=== PATIENT | male | born 1970 | race Caucasian/White ===

== ENCOUNTER 2023-10-07 08:44 | Emergency (ER) | payer MEDICAID, SELFPAY ==
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
[2023-10-07 08:59] VITALS: BP 132/64; BP 139/75; PULSE 76; PULSE 91; RESP 14; TEMP 36.4; O2SAT 90; O2SAT 93; BMI 21.5
[2023-10-07 09:20] VITALS: BP 140/85; PULSE 64; RESP 16; TEMP 36.3; O2SAT 95
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
--- NOTE | 2023-10-07 09:43 | PC.NURSE ---
Pt changed over by security, belongings in decon. Vitals stable, pt placed on bedside ekg monitor, NSR. SPO2 remains stable on RA. Pt is calm and cooperative, resting in bed.
[2023-10-07 09:53] LABS: MANUAL DIFF FLAG NO
[2023-10-07 09:57] LABS: Basophils Percent Auto 0.3 % (0-2); Eosinophils Absolute Auto 0.1 X10*3/uL (0.0-0.4); Eosinophils Percent Auto 1.8 % (0-4); Hematocrit 40.9 % (42.0-52.0); Imm Gran Abs Auto 0.02 X10*3/uL (0.00-0.03); Imm Gran Pct Auto 0.3 % (0.0-0.4); Lymphocytes Absolute Auto 0.9 X10*3/uL (1.2-4.9); Lymphocytes Percent Auto 13.9 % (20-40); Mean Corpuscular HGB Conc 34.2 g/dl (31.0-36.0); Mean Corpuscular Hemoglobin 31.9 pg (27.0-33.0); Mean Corpuscular Volume 93.2 fL (80.0-98.0); Mean Platelet Volume 10.2 fL (9.4-12.4); Monocytes Absolute Auto 0.5 X10*3/uL (0.1-1.2); Neutrophils Absolute Auto 5.2 x10*3/uL (2.0-8.3); Neutrophils Percent Auto 76.7 % (45-73); Platelet Count 194 X10*3/uL (160-400); Red Blood Count 4.39 X10*6/uL (4.60-5.80); Red Cell Distribution Width 14.9 % (11.0-16.0); White Blood Count 6.7 X10*3/uL (4.8-10.8)
[2023-10-07 10:00] VITALS: PULSE 58; RESP 16; O2SAT 95
[2023-10-07 10:16] LABS: Alanine Aminotransferase 25 U/L (0-40); Albumin Level 4.2 g/dL (3.5-5.0); Alkaline Phosphatase 91 U/L (39-117); Anion Gap 12 (12-20); Aspartate Amino Transferase 18 U/L (5-37); Bilirubin Direct 0.2 mg/dL (0.0-0.5); Bilirubin Total 0.5 mg/dL (0.0-1.0); Blood Urea Nitrogen 14 mg/dL (9-16); Calcium 9.6 mg/dL (8.4-10.2); Carbon Dioxide 27 mmol/L (22-29); Chloride 107 mmol/L (96-108); Creatinine Clr Calc Pharmacy 82.9; Estimated Glomerular Filt Rate > 60; Ethanol < 10 mg/dL; Glucose Random 136 mg/dL (60-115); Magnesium 2.1 mg/dL (1.6-2.6); Potassium 3.7 mmol/L (3.3-5.1); Sodium 142 mmol/L (135-145); Total Protein 7.1 g/dL (6.5-8.0)
--- NOTE | 2023-10-07 10:43 | ED_ITS ---
HPI - Overdose General Chief Complaint: Overdose Stated Complaint: FOUND UNRESP/?OD,NARCAN GIVEN W/GOOD RESULT PER EM Time Seen by Provider: 10/07/23 09:06 Source: patient Mode of arrival: ambulatory Limitations: no limitations History of Present Illness ED Provider: Radha Bustamante PA-C HPI Narrative: 52 yo male with history of DM, polysubstance abuse who presents to the ER for evaluation of an unwitnessed fall, possible drug overdose that responded to Narcan after being found unresponsive. [place] reports a neighbor found the patient unresponsive. He was given Narcan by the police with good response. Patient states that he thinks he fell down. He thinks he hit his head. He admits to using crack cocaine but denies heroin or fentanyl use. He denies any other injuries aside from a headache. No chest pain, abdominal pain, SOB, N/V/D. MD complaint: accidental overdose Onset (ago): unknown Intent: unwilling to say Related Data Allergies Allergy/AdvReac Type Severity Reaction Status Date / Time No Known Allergies Allergy Verified 10/07/23 09:02 Review of Systems 2 Review of Systems: Yes all other systems are reviewed and are negative [facility] Social History Social History Smoked in Last 30 Days: Yes Use of substances other than those prescribed or required for medical reasons: Yes Substance Use Type: Crack/Cocaine and Marijuana Advance Directives: No Advance Directives Information Provided: No Do you have a plan to hurt others: No Plan Physical Exam 2 Vital Signs: Vital Signs: Last Vital Signs Temp 97.6 F 10/07/23 12:14 Pulse 60 10/07/23 12:14 Resp 18 10/07/23 12:14 BP 176/102 H 10/07/23 12:14 Pulse Ox 98 10/07/23 12:14 O2 Del Method Room Air 10/07/23 12:14 BMI result Body Mass Index 21.5 Appearance: Alert. Oriented X3. No acute distress. Head: normocephalic, atraumatic. Eyes: Pupils equal, round and reactive to light. ENT: Pharynx normal. No tonsillar swelling or exudate. Neck: Normal inspection. Neck supple. tenderness of the midline cervical spine, normal ROM CVS: Normal heart rate and rhythm. Pulses normal. Respiratory: No respiratory distress. Breath sounds normal. Abdomen: Soft and nontender. +BS x4 Skin: Skin warm and dry. Normal skin color. Normal skin turgor. No rashes. Extremities: No lower extremity edema. No joint swelling. No tract pratt Neuro/psych: Oriented X 3. No motor deficit. No sensory deficit. CN II-XII intact. Normal speech and cognition. Medications Administered Discontinued Medications Generic Name Dose Route Start Last Admin Trade Name Trang PRN Reason Stop Dose Admin Naloxone HCl 8 mg 10/07/23 12:05 10/07/23 12:14 Naloxone Hcl Nasal Take Home 4 Mg Ringling NOSTRILALT 10/07/23 12:06 8 mg ONCE ONE Administration Medical Decision Making Medical Decision Making [facility] Narrative: 52-year-old male presents to the ER for evaluation of a possible overdose. He was found unresponsive and unable to Narcan. He arrives to the ER awake, alert, oriented but confused about the situation that occurred, does not have recollection of what happened. He does admit to crack cocaine use but denies any heroin or fentanyl use. He also admits to using marijuana. On examination there is no signs of any trauma but he does have some serious count redness and some soft tissue tenderness over the paraspinous muscles. CT head and neck were orbits were unremarkable. Lab workup was also ordered and unremarkable. CPK is normal no evidence of rhabdomyolysis. No other evidence of traumatic injuries on examination. Patient monitored in the emergency for over 3 hours with no further alteration in mentation. He was advised to abstain from illegal drugs as this was most likely etiology was unresponsive episode. Declining need for detox today. He is stable discharge home. Home Narcan was provided on discharge Differential Diagnosis Differential Diagnoses: The differential diagnosis associated with the presentation includes polysubstance overdose, alcohol intoxication, rhabdomyolysis, concussion, ICH/SAH less likely Admission/Observation Consideration of admission/observation: Escalation of care including admission/observation considered Lab Data [facility] Lab Attestation statement: I reviewed the patient's lab results. no leukocytosis, normal function, CPK 10/07/23 09:49 10/07/23 09:49 Labs: Lab Results 10/07/23 Range/Units 09:49 WBC 6.7 (4.8-10.8) X10*3/uL RBC 4.39 L (4.60-5.80) X10*6/uL Hgb 14.0 (14.0-18.0) g/dl Hct 40.9 L (42.0-52.0) % MCV 93.2 (80.0-98.0) fL MCH 31.9 (27.0-33.0) pg MCHC 34.2 (31.0-36.0) g/dl RDW 14.9 (11.0-16.0) % Plt Count 194 (160-400) X10*3/uL MPV 10.2 (9.4-12.4) fL Immature Gran % (Auto) 0.3 (0.0-0.4) % Neut % (Auto) 76.7 H (45-73) % Lymph % (Auto) 13.9 L (20-40) % Zapata % (Auto) 7.0 (2-11) % Eos % (Auto) 1.8 (0-4) % Baso % (Auto) 0.3 (0-2) % Lymph # (Auto) 0.9 L (1.2-4.9) X10*3/uL Zapata # (Auto) 0.5 (0.1-1.2) X10*3/uL Eos # (Auto) 0.1 (0.0-0.4) X10*3/uL Baso # (Auto) 0.0 (0.0-0.2) X10*3/uL Abs Immat Gran (auto) 0.02 (0.00-0.03) X10*3/uL Absolute Neuts (auto) 5.2 (2.0-8.3) x10*3/uL Absolute Nucleated RBC 0.000 (0.0-0.012) X10*3/uL Nucleated RBC % (auto) 0.0 (0.0-0.2) /100WBC Sodium 142 (135-145) mmol/L Potassium 3.7 (3.3-5.1) mmol/L Chloride 107 (96-108) mmol/L Carbon Dioxide 27 (22-29) mmol/L Anion Gap 12 (12-20) BUN 14 (9-16) mg/dL Creatinine 0.89 (0.5-1.4) mg/dL Estim Creat Clear Calc 82.9 Estimated GFR > 60 Random Glucose 136 H (60-115) mg/dL Calcium 9.6 (8.4-10.2) mg/dL Magnesium 2.1 (1.6-2.6) mg/dL Total Bilirubin 0.5 (0.0-1.0) mg/dL Direct Bilirubin 0.2 (0.0-0.5) mg/dL AST 18 (5-37) U/L ALT 25 (0-40) U/L Alkaline Phosphatase 91 (39-117) U/L Total Creatine Kinase 158 (38-174) U/L Total Protein 7.1 (6.5-8.0) g/dL Albumin 4.2 (3.5-5.0) g/dL Ethyl Alcohol < 10 mg/dL Independent Interpretation I performed an independent interpretation of an: CT Scan Interpretation: no acute cerebral edema or bleed, agree w/ radiology read Radiology Impression Discussion of test interpretation with radiology: I have reviewed the radiologist's reading. Radiologist Impression: EXAMINATION: CT HEAD WITHOUT CONTRAST CT CERVICAL SPINE WITHOUT CONTRAST CLINICAL INFORMATION: Headache status post fall. Head strike. COMPARISON: No relevant prior imaging. TECHNIQUE: CT imaging of the head and cervical spine was performed without contrast. Data was reformatted into multiplanar images at the acquisition workstation. This CT examination was performed using dose optimization techniques as appropriate, including one or more of the following: Automated exposure control, iterative reconstruction, and adjustment of technique factors (mA and/or kVp) according to patient size (this includes techniques or standardized protocols for targeted exams where dose is matched to indication/reason for exam). Fleischner Society criteria for the followup of incidental pulmonary nodules was implemented if appropriate. DLP: 963 mGy-cm. FINDINGS: Head: There is no acute intracranial hemorrhage or abnormal extra-axial collection. No intracranial mass effect or midline shift. Lateral and third ventricles are normal. No hydrocephalus. Kramer-white matter differentiation is grossly preserved and there is no evidence of acute territorial infarct. The calvarium and skull base are grossly intact. No mastoid or middle ear effusion. Moderate to severe paranasal sinus disease. There are chronic changes of an old healed left lamina papyracea fracture. Globes and orbits are otherwise unremarkable. Cervical spine: Spinal alignment is normal. Vertebral body heights are preserved. No acute cervical spine fracture. No abnormal prevertebral soft tissue swelling. Canal patency is not well assessed on this examination due to inherent limitations of CT without intrathecal contrast. There appears to be at least mild canal stenosis at multiple levels. Visualized soft tissues of the neck are unremarkable. Grossly no pathologically enlarged cervical lymph nodes. Lung apices are clear. CT/CT head/brain wo IV con IMPRESSION: Head: No acute intracranial hemorrhage. No evidence of acute territorial infarct. Cervical Spine: No acute cervical spine fracture and no posttraumatic spinal subluxation. There appears to be at least mild canal stenosis at multiple levels. If there are clinical symptoms of compressive myelopathy then a dedicated cervical spine MRI can be obtained for better anatomic characterization of the cord and canal. Independent Historian Clinical information obtained from an independent historian. History obtained from or confirmed by: EMS Prescription Management I considered prescription management with: Other ( Narcan) Chronic Conditions Patient?s care impacted by: Other ( polysubstance abuse) Social Determinants Patient?s care significantly limited by Social Determinants of Health including: Other Social Determinant of Health Critical Care Time Critical Care Time Critical Care Time: No Discharge Plan Discharge Clinical Impression: Drug overdose Patient Disposition: Home, Self-Care Instructions: Adult Overdose (ED) Additional Instructions: Don't do drugs You were given Narcan today If you develop new or worsening symptoms call 911 or come back to the ER for further evaluation. Interventions: ED Discharge Assessment Last Done: 10/07/23 12:14 Discharge Date/Time: 10/07/23 12:32 Print Language: Bulgarian
[2023-10-07 12:14] VITALS: BP 176/102; PULSE 60; RESP 18; TEMP 36.4; O2SAT 98
[2023-10-07] MEDS: Naloxone HCl Nasal TAKE HOME 4 MG SPRAY 8 MG NOSTRILALT (12:14)
== END 2023-10-07 12:32 | disposition home or self-care (01) ==
PROVIDERS: Physician Assistant; Emergency Provider Emergency Medicine
DX: T40.5X1A Poisoning by cocaine, accidental (unintentional), initial encounter (principal); R40.4 Transient alteration of awareness; Y92.9 Unspecified place or not applicable; F19.10 Other psychoactive substance abuse, uncomplicated
CPT/HCPCS: 36415; 70450; 72125; 80048; 80076; 80307; 82550; 83735; 85025; 99284; 99285

== ENCOUNTER 2024-12-05 23:56 | Emergency (ER) | payer MEDICAID, SELFPAY ==
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
--- NOTE | ~2024-12-05 | XR_ITS ---
CLINICAL HISTORY: pain, tender 2 view left femur Comparison: None provided Findings: No fractures or dislocations. No knee effusion. No significant arthritic change. No radiopaque foreign body. IMPRESSION: 1. Normal left femur This document has been electronically signed by: Matthew Patricia MD on 12/06/2024 02:08:53
[2024-12-06 00:05] VITALS: BP 112/74; PULSE 69; O2SAT 96
[2024-12-06 00:23] VITALS: BP 114/58; PULSE 82; RESP 16; TEMP 36.8; O2SAT 98; BMI 22.6
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
--- OUTSIDE RECORDS SUMMARY | 2024-12-06 01:18 | XMS_ITS | Encounter Summary ---
Author Organization [facility] Address [address] [address] Phone Care Team Providers Care Horticultural Worker Name Role Phone Mayo Bhargavi Nguyen [facility] Primary Care Provide r Encounter Details Date Type Department Care Team (Late st Contact Info) Description 08/29/2022 Transcribe Orders [facility] Specimen Processing [address] [place] [address] Anne Richard MD [id number] [place] [address] [email or web address] Social History Tobacco Use Types Packs/Day Years Used Date Smoking Tobacco: Never Assessed Education Answer Date Recorded Are you interested in more education? Not on everardo e 09/01/2022 Are you concerned about learning? Not on file 09/01/2022 No 09/01/2022 No 09/01/2022 Sex and Gender Information Value Date Recorded Sex Assigned at Not on file Legal Sex Male 1:21 PM EDT Gender Identity Not on file Sexual Orientation Not on file documented as of this encounter Plan of Treatment Not on file documented as of this encounter Visit Diagnoses Not on filedocumented in this encounter Care Teams Horticultural Worker Relationship Specialty Start Date End Date Bhargavi Huber FNP PCP - General Nurse Practitioner 08/27/22 documented as of this encounter Additional Source Comments The information contained in this document represents components of the legal health record. It is not the complete legal health record.[facility]
--- OUTSIDE RECORDS SUMMARY | 2024-12-06 01:18 | XMS_ITS | Clinical Summary ---
Author Organization [employer] Address [address] [facility] [address] [place] [address] Care Team Providers Care Play Writer Name Role Phone Ravi, Linda Unavailable Unavailable Allergies Active Allergy Reactions Criticality Noted Date Comments Amphetamine-Dextroamphetam ine 08/27/2022 hives Quetiapine Other 08/27/2022 Anger, violent behavioral Medications escitalopram (Lexapro) 20 MG tabletIndication s:PTSD (post-traumatic stress disorder) Take 1 tablet (20 mg) by mouth in the morning. 90 tablet 3 11/09/2022 Active atorvastatin (Lipitor) 40 MG tablet Take 1 tablet (40 mg) by mouth in the morning. 90 tablet 3 02/27/2023 Active metFORMIN (Glucophage) 500 MG tabletIndication s:Type 2 diabetes mellitus without complication, without long-term current use of insulin (CMS/HCC) TAKE 1 TABLET (500 MG) BY MOUTH WITH EVENING MEAL 90 tablet 3 03/04/2023 Active ARIPiprazole (Abilify) 5 MG tabletIndication s:Schizoaffectiv e disorder, bipolar type (CMS/HCC) Take 1 tablet (5 mg) by mouth in the morning. 30 tablet 1 03/22/2023 Active gabapentin (Neurontin) 300 MG capsuleIndicatio ns:Bipolar affective disorder, current episode mixed, current episode severity unspecified (CMS/HCC),Chroni c pain of right knee TAKE 1 CAPSULE BY MOUTH THREE TIMES A DAY 90 capsule 1 04/01/2023 Active clonazePAM (KlonoPIN) 1 MG tabletIndication s:Bipolar affective disorder, current episode mixed, current episode severity unspecified (CMS/HCC) TAKE 1 TABLET BY MOUTH IF NEEDED IN THE MORNING AT NOON AND AT BEDTIME FOR ANXIETY FOR UP TO 14 DAYS 42 tablet 08/20/2023 Active fenofibrate (Tricor) 48 MG tablet TAKE 1 TABLET (48 MG) BY MOUTH IN THE MORNING. 90 tablet 2 10/10/2023 Active Active Problems Problem Noted Date Diagnosed Date PTSD (post-traumatic stress disorder) 08/31/2022 Tobacco use disorder 08/31/2022 Type 2 diabetes mellitus wit hout complication, without long-term current use of insulin 08/31/2022 Hypertriglyceridemia 08/31/2022 Elevated LFTs 08/31/2022 Schizoaffective disorder, bipolar type Left foot drop 08/28/2022 Chronic pain of right knee 08/28/2022 Opioid use disorder in remission 08/28/2022 Insomnia 08/28/2022 Bipolar affective disorder, current episode mixe d 08/28/2022 Sheltered homelessness 08/28/2022 Resolved Problems Problem Noted Date Diagnosed Date Resolved Date Dyspnea 08/28/2022 08/31/2022 Immunizations Immunization Administration Dates Next Due Moderna Covid-19 Vaccine 12+ 02/27/2023 Social History Tobacco Use Types Packs/Day Years Used Date Smoking Tobacco: Every Day Cigarettes Tobacco Cessation:Ready to Q uit: Not Asked; Counseling Given: Not Answered Alcohol Use Standard Drinks/Week Comments Not Currently 0 (1 standard drink = 0.6 oz pur e alcohol) Education Answer Date Recorded What is the highest level of school you have completed or the highest degree you have received? 11th grade 08/01/2022 Sex and Gender Information Value Date Recorded Sex Assigned at Male 07/27/2022 1:18 PM EDT Legal Sex Male 1:14 PM EDT Gender Identity Male 07/27/2022 1:18 PM EDT Sexual Orientation Straight 08/31/2022 10 :56 AM EDT Last Filed Vital Signs Vital Sign Reading Time Taken Comments Blood Pressure 124/82 02/27/2023 11:43 AM EDT Pulse 82 02/27/2023 11:43 AM EDT Temperature 36.4 C (97.6 F) 02/27/2023 11:43 AM EDT Respiratory Rate 16 02/27/2023 11:43 AM EDT Oxygen Saturation 98% 02/27/2023 11:43 AM EDT Inhaled Oxygen Concentration - - Weight 69.9 kg (154 lb) 02/27/2023 11:43 AM EDT Height 167.6 cm (5' 6 ) 02/27/2023 11:43 AM EDT Body Mass Index 24.86 02/27/2023 11:43 AM EDT Plan of Treatment Health Maintenance Due Date Last Done Comments CT Colonography 1970 Colonoscopy 1970 Colorectal Cancer Screening 1970 Depression Screening 1970 FIT DNA/Cologuard 1970 FIT 1970 FOBT 1970 SDOH Screening 1970 Sigmoidoscopy 1970 Disability Screening 1970 Diabetes: Foot Exam 1980 Eye Exam 1980 Alcohol/Substance Use Screening 1982 DTaP/Tdap/Td Vaccines (1 - Tdap) 1989 Hepatitis B Vaccines (1 of 3 - 19+ 3-dose series) 1989 Pneumococcal Vaccine: 50+ Years (1 of 2 - PCV) 1989 Zoster Vaccines (1 of 2) 2020 Diabetes: Hemoglobin A1C 11/26/2022 023, 08/27/2022 Diabetes: Urine Protein Screening 08/28/2023 08/27/2022 Lipid Panel 08/28/2023 08/27/2022, 08/27/2022, 08/27/2022 COVID-19 Vaccine (2 - 2023-2 5 season) 2024 02/27/2023 Tobacco Screening 04/04/2024 04/04/2023 Influenza Vaccine (#1) 2025 RSV Patients and Patients Aged 60 years or older (1 - 1-dose 75+ series) 2045 HIV Screening Completed 08/27/2022, 08/27/2022 Hepatitis C Screening Completed 08/27/2022 , 08/27/2022 HIB Vaccines Aged Out No longer eligi ble based on patient's age to complete this topic HPV Vaccines Aged Out No longer eligi ble based on patient's age to complete this topic Hepatitis A Vaccines Aged Out No long er eligible based on patient's age to complete this topic IPV Vaccines Aged Out No longer eligi ble based on patient's age to complete this topic Meningococcal B Vaccine Aged Out No l onger eligible based on patient's age to complete this topic Meningococcal Vaccine Aged Out No da tricia eligible based on patient's age to complete this topic RSV under 20 months Aged Out No longe r eligible based on patient's age to complete this topic Rotavirus Vaccines Aged Out No longer eligible based on patient's age to complete this topic Procedures Procedure Name Priority Date/Time Associated Diagnosis Comments MICROALBUMIN, RANDOM (W CREAT) Routine 08/27/2022 2:53 PM EDT HEPATITIS C AB W/RFL RNA, PCR W/RFL GENOTYPE,LIPA Routine 08/27/2022 Encounter for HCV screening test for high risk patient HIV 1/2 ANTIGEN/ANTIBODY, FOURTH GENERATION W/RFL Routine 08/27/2022 Screening for HIV (human immunodeficiency virus) HEMOGLOBIN A1C Routine 08/27/2022 Hyperglycemia LIPID PANEL, STANDARD Routine 08/27/2022 Screening for lipid disorders from Last 3 Months or Most Recently Relevant to Health Maintenance Results * Microalbumin, Random Urine w/Creatinine (08/27/2022 2:53 PM EDT) Micro-Albumin <12.0 (<20) MG/L [facility] Comment: The urine microalbumin test is designed to monitor renal function. When screening for Bence Jeffries proteinuria, urine electrophoresis is recommended. Malb/Creat Ratio Unable to calculate (0-20) MG/GM [facility] Urine Creat For Micro Albumin 84.6 MG/DL [facility] Comment: Testing performed or reported by [facility], a Service of [facility], [address] [place] [address] Winsome Antonio MD, City Controller [facility]# [id number] 08/27/2022 2:53 PM EDT 08/27/2022 9:53 PM EDT [facility] LAB URINE ORDERABLES Ashley l Result [facility] [address] [place] [id number] * Hepatitis C Antibody with Reflex to HCV RNA,PCR w/Reflex to Genotype, LiPA (08/27/2022) [facility] LAB BLOOD ORDERABLES Ashley l Result EXTERNAL LAB * HIV-1/2 Antigen and Antibodies, Fourth Generation, with Reflexes (08/27/2022) Blood Venous blood specimen / Unknown [facility] LAB BLOOD ORDERABLES Ashley l Result EXTERNAL LAB * Hemoglobin A1c (08/27/2022) Blood Venous blood specimen / Unknown [facility] LAB BLOOD ORDERABLES Ashley l Result EXTERNAL LAB * Lipid Panel, Standard (08/27/2022) Blood Venous blood specimen / Unknown [facility] LAB BLOOD ORDERABLES Ashley l Result Performing Organization Address City/[facility]/ZIP Co de Phone Number EXTERNAL LAB from Last 3 Months or Most Recently Relevant to Health Maintenance Insurance [facility] C3 Care Teams Play Writer Relationship Specialty Start Date End Date Linda Rodrigues Navigator Financial Counseling and Assistance Services 07/31/22
[2024-12-06 01:23] LABS: Appearance Urine Clear; Glucose Urine UA Negative (Negative); PH 6.5 (5.0-9.0); Specific Gravity - Urine <= 1.005 (1.005-1.025)
[2024-12-06] MEDS: Diphth,Pertus(ACell),Tet Adult 0.5 ML SYRINGE IM (02:07)
[2024-12-06 06:16] VITALS: BP 123/83; PULSE 54; RESP 16; TEMP 36.7; O2SAT 97
[2024-12-06 06:32] VITALS: BP 123/83; PULSE 54; RESP 16; TEMP 36.7; O2SAT 97
== END 2024-12-06 06:32 | disposition home or self-care (01) ==
PROVIDERS: Emergency Provider Emergency Medicine
DX: S79.921A Unspecified injury of right thigh, initial encounter (principal); S29.9XXA Unspecified injury of thorax, initial encounter; Y04.8XXA Assault by other bodily force, initial encounter; Y93.9 Activity, unspecified; Y92.9 Unspecified place or not applicable; Y99.9 Unspecified external cause status
CPT/HCPCS: 70450; 71250; 73552; 81001; 90471; 90715; 99284

== ENCOUNTER → 2024-12-06 01:15 | Outpatient (BNV) | payer MEDICAID, SELFPAY | PROVIDERS: Emergency Provider Emergency Medicine; Visit Provider Radiology Diagnostic Radiology | DX: S29.9XXA Unspecified injury of thorax, initial encounter (principal); S09.90XA Unspecified injury of head, initial encounter; M79.652 Pain in left thigh | CPT/HCPCS: 70450; 71250; 73552 ==

== ENCOUNTER 2025-04-30 06:56 | Emergency (ER) | payer MEDICAID, SELFPAY ==
--- OUTSIDE RECORDS SUMMARY | 2024-07-07 03:40 | XMS_ITS ---
Author Organization [facility] Address [address] [place] [address] Care Team Providers Care Live In Housekeeper Name Role Phone Latisha Tidwell Primary Care Provider [facility], Nursing Unavailable [phone] REASON FOR VISIT Office: Lab draw Social History Sex Assigned At : Social History Observation Description Sex Assigned At Male Encounters Encounter Location Date Provider Diagnosis [address] [address] 07/07/2024 Nursing [facility] Plan Of Treatment No Information Progress Notes * Ronen DIASDOB:08/1970 (54 yo M)Acc No.[id number]:07/07/2024 Progress Notes Patient: Ronen MORA Provider: Yokasta rose [facility] :1970 A ge:53 Y S ex:Male Date:07/07/2024 Address:[address] [place], [place] [phone] Pcp:Latisha Tidwell Subjective: * Chief Complaints: * 1 . Office: Lab draw. Objective: * Vitals: Assessment: Plan: * Treatment: * Images: Billing Information: * Visit Code: * Procedure Codes: * Electronic signature of Dar [facility] on 04/30/2025 at 07:41 AM EST Sign off status: Pending * Provider: Yokasta rose [facility] Date: 0 07/07/2024 Generated for Darshana gupta/Meño/eTalliesmitting on: 1 07/01/2024 07:41 AM EST
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
--- OUTSIDE RECORDS SUMMARY | 2024-09-01 05:00 | XMS_ITS ---
Author Organization [facility] Address [address] [place] [address] Care Team Providers Care Automat Car Attendant Name Role Phone Latisha Tidwell Primary Care Provider REASON FOR VISIT Office: Chronic cre f/u Social History Sex Assigned At : Social History Observation Description Sex Assigned At Male Encounters Encounter Location Date Provider Diagnosis [address] [address] 09/01/2024 Latisha Tidwell Plan Of Treatment No Information Progress Notes * Ronen DIASDOB:08/1970 (54 yo M)Acc No.[id number]:09/01/2024 Progress Notes Patient: Eber RUSSRonen JEROME Provider: MARCOS Curtis :1970 A ge:53 Y S ex:Male Date:09/01/2024 Address:[address] [place], [place] [id number] Subjective: * Chief Complaints: * 1 . Office: Chronic cre f/u. * Medical History: Objective: * Vitals: Assessment: Plan: * Treatment: * Images: Billing Information: * Visit Code: * Procedure Codes: Care Plan Details* * Electronic signature of Bc Tidwell on 04/30/2025 at 07:40 AM EST Sign off status: Pending * Provider: MARCOS Curtis Date: 0 09/01/2024 Generated for Darshana Garza/Rolando on: 1 07/01/2024 07:40 AM EST
--- OUTSIDE RECORDS SUMMARY | 2024-10-14 04:00 | XMS_ITS ---
Author Organization [facility] Address [address] [place] [address] Care Team Providers Care Ornamental Iron Worker Helper Name Role Phone Latisha Tidwell Primary Care Provider [phone] REASON FOR VISIT Office: F/u DM Social History Sex Assigned At : Social History Observation Description Sex Assigned At Male Encounters Encounter Location Date Provider Diagnosis [address] [place] [address] 10/14/2024 Latisha Tidwell Encounter for screening for COVID-19 Z11.52 Assessments Encounter Date Diagnosis (ICD Code) Assessment Notes Treatment Notes Treatment Clinical Notes Section Notes 10/14/2024 Encounter for screening for COVID-19 (ICD-10 - Z11.52) Covid screening is negative. Discussed in detail with patient how to practice social distancing by avoiding public spaces and crowds now, wearing a mask in public to keep nose and mouth covered, and washing hands frequently especially before eating and after using the bathroom. Return to clinic if you develop any symtpoms of concern to be rescreened or go to the emergency room if you are having concerning symptoms for COVID-19. 10/14/2024 Other Plan Of Treatment Treatment Notes Assessment Notes Encounter for screening for COVID-19 Cov id screening is negative. Discussed in detail with patient how to practice social distancing by avoiding public spaces and crowds now, wearing a mask in public to keep nose and mouth covered, and washing hands frequently especially before eating and after using the bathroom. Return to clinic if you develop any symtpoms of concern to be rescreened or go to the emergency room if you are having concerning symptoms for COVID-19. Progress Notes * Ronen DIASDOB:08/1970 (54 yo M)Acc No.[id number]:10/14/2024 Progress Notes Patient: Ronen MORA Provider: MARCOS Curtis :1970 A ge:54 Y S ex:Male Date:10/14/2024 Address:[address] [place] [address] Subjective: * Chief Complaints: * 1 . Office: F/u DM. * HPI: G eneral: Symptom Screen: - Fever in the last 1 week? Patient denies - New or worsening cough in the last 1 week? Patient denies. - Contact will known COVID exposure in last 5 days? Patient denies -new rash within last 3 weeks? Patient denies - Have you received the COVID-19 vaccine? - Have you received COVID-19 booster? - Have you been tested positive for COVID -19 in the last 7 days? If so where and why? RN/MA:. * ROS: N o acute C/P no acute SOB, No problem with urine, No heartburn or abdominal pain. Endorses being able to climb one fight of stairs without stopping due to SOB, Mood: stable, appetite: good, sleeping well. Denies new skin rashes. * Medical History: Objective: * Vitals: Assessment: * Assessment: 1. E ncounter for screening for COVID-19 - Z11.52 (Primary) Plan: * Treatment: * Images: Billing Information: * Visit Code: * Procedure Codes: Care Plan Details* * Electronic signature of Bc Tidwell on 04/30/2025 at 07:41 AM EST Sign off status: Pending * Provider: MARCOS Curtis Date: 0 10/14/2024 Generated for Darshana gupta/Meño/Rolando on: 1 07/01/2024 07:41 AM EST
--- OUTSIDE RECORDS SUMMARY | 2025-01-16 16:00 | XMS_ITS ---
Author Organization [facility] Address [address] [place] [address] Care Team Providers Care Underwater Hunter Trapper Name Role Phone Latisha Tidwell Primary Care Provider Migration, Provider Unavailable Unavailable [facility]IT [facility] Conversion Encounter Medications Medication SIG (Take, [...] Location Date Provider Diagnosis [facility] [address] [place] [address] 01/16/2025 Provider Migration Type 2 diabetes mellitus with hyperglycemia E11.65 Assessments Encounter Date Diagnosis (ICD Code) Assessment Notes Treatment Notes Treatment Clinical Notes Section Notes 01/16/2025 Type 2 diabetes mellitus with hyperglycemia (ICD-10 - E11.65) Plan Of Treatment Medication Medication Name Sig Start Date Stop Date Notes Farxiga 5 MG 1 tab(s) orally once a day for 90 days 07/13/2024 pls deliver to [facility] Progress Notes * Isabel DIAS:08/1970 (54 yo M)Acc No.[id number]:01/16/2025 Patient: Ronen MORA Provider: :1970 A ge:54 Y S ex:Male Date:01/16/2025 Address:[address] [place] [address] Pcp:Latisha Tidwell Subjective: * Chief Complaints: * [facility] . [facility] * Medical History: * Medications: [...] Electronic signature of Prov ider Migration on 04/30/2025 at 07:41 AM EST Sign off status: Pending * Provider: Date: 0 01/16/2025 Generated for Darshana gupta/Meño/Rolando on: 1 07/01/2024 07:41 AM EST
[2025-04-30 07:29] VITALS: BP 145/63; PULSE 74; RESP 16; TEMP 36.6; O2SAT 97; BMI 18.6
--- OUTSIDE RECORDS SUMMARY | 2025-04-30 07:41 | XMS_ITS | Encounter Summary ---
Author Organization [facility] Address [address] [place] [address] Phone Care Team Providers Care Swimming Pool Installer Name Role Phone Bhargavi Huber MACHINE OPERATOR Primary Care Provider Encounter Details Date Type Department Care Team (Late st Contact Info) Description 08/29/2022 Transcribe Orders [facility] Specimen Processing [address] [place] [address] Anne Richard MD [address] [place] [address] [email or web address] Social History Tobacco Use Types Packs/Day Years [...] on filedocumented in this encounter Care Teams Swimming Pool Installer Relationship Specialty Start Date End Date Bhargavi Huber NP PCP - General Nurse Practitioner 08/27/22 documented as of this encounter Additional Source Comments The information contained in this document represents components of the legal health record. It is not the complete legal health record.[facility]
--- OUTSIDE RECORDS SUMMARY | 2025-04-30 07:41 | XMS_ITS | Clinical Summary ---
Author Organization [employer] Address [address] [facility] 7t [place] [address] Care Team Providers Care Pricing Lead Name Role Phone Ravi, Linda Unavailable Unavailable [...] complication, without long-term current use of insulin (HCC) TAKE 1 TABLET (500 MG) BY MOUTH WITH EVENING MEAL 90 tablet 3 03/04/2023 Active ARIPiprazole (Abilify) 5 MG tabletIndication s:Schizoaffectiv e disorder, bipolar type (CMS/HCC) (HCC) Take 1 tablet (5 mg) by mouth in the morning. 30 tablet 1 03/22/2023 Active gabapentin (Neurontin) 300 MG capsuleIndicatio ns:Bipolar affective disorder, current episode mixed, current episode severity unspecified (CMS/HCC) (HCC),Chronic pain of right knee TAKE 1 CAPSULE BY MOUTH THREE TIMES A DAY 90 capsule 1 04/01/2023 Active clonazePAM (KlonoPIN) 1 MG tabletIndication s:Bipolar affective disorder, current episode mixed, current episode severity unspecified (CMS/HCC) (HCC) TAKE 1 TABLET BY MOUTH IF NEEDED [...] Elevated LFTs 08/31/2022 Schizoaffective disorder, bipolar type ([facility]) 08/28/2022 Left foot drop 08/28/2022 Chronic pain of right knee 08/28/2022 Opioid use disorder in remission 08/28/2022 Insomnia 08/28/2022 Bipolar affective disorder, current episode mixe d ([facility]) 08/28/2022 Sheltered homelessness 08/28/2022 Resolved Problems Problem [...] 08/27/2022 Lipid Panel 08/28/2023 08/27/2022, 08/27/2022, 08/27/2022 Tobacco Screening 04/04/2024 04/04/2023 COVID-19 Vaccine (2 - 2024-2 6 season) 2025 02/27/2023 Influenza Vaccine (#1) 2025 RSV Patients and Patients Aged 60 years or older (1 - 1-dose 75+ series) 2045 HIV Screening Completed 08/27/2022 Hepatitis C Screening Completed 08/27/2022 , [...] 2:53 PM EDT) Micro-Albumin <12.0 (<20) MG/L [facility] Comment: The urine microalbumin test is designed to monitor renal function. When screening for Bence Jeffries proteinuria, urine electrophoresis is recommended. Malb/Creat Ratio Unable to calculate (0-20) MG/GM [facility] Urine Creat For Micro Albumin 84.6 MG/DL [facility] Comment: Testing performed or reported by [facility], a Service of [facility], [address] [place] [id number] Winsome Antonio MD, Shank Skinner [facility]# [id number] 08/27/2022 2:53 PM EDT 08/27/2022 9:53 PM EDT [facility] LAB URINE ORDERABLES Ashley amador Result [facility] [address] [place] [address] * Hepatitis C Antibody with Reflex to HCV RNA,PCR w/Reflex to Genotype, LiPA (08/27/2022) [facility] LAB BLOOD ORDERABLES Ashley l Result Performing Organization Address City/[facility]/ZIP Co de Phone Number EXTERNAL LAB * HIV-1/2 Antigen and Antibodies, Fourth Generation, with Reflexes (08/27/2022) Blood Venous blood specimen / Unknown [facility] LAB BLOOD ORDERABLES Ashley l Result EXTERNAL LAB * Hemoglobin A1c (08/27/2022) Blood Venous blood specimen / Unknown [facility] LAB BLOOD ORDERABLES Ashley l Result EXTERNAL LAB * Lipid Panel, Standard (08/27/2022) Blood Venous blood specimen / Unknown [facility] LAB BLOOD ORDERABLES Ashley l Result Performing Organization Address City/[facility] Co de Phone Number EXTERNAL LAB from Last 3 Months or Most Recently Relevant to Health Maintenance Insurance [facility] C3 Care Teams Pricing Lead Relationship Specialty Start Date End Date Linda Rodrigues Navigator Financial Counseling and Assistance Services 07/31/22
--- OUTSIDE RECORDS SUMMARY | 2025-04-30 07:41 | XMS_ITS | Clinical Summary ---
Author Organization [facility] Address [address] [place] [address] Phone Care Team Providers Care Wildlife Technician Name Role Phone Bhargavi Huber SEAMUS Primary Care Provider Social History Tobacco Use Types Packs/Day Years Used Date Smoking Tobacco: Never Assessed Education Answer Date Recorded Are you interested in more education? Not on everardo e 09/01/2022 Are you concerned about learning? Not on file 09/01/2022 No 09/01/2022 No 09/01/2022 Digital Access Answer Date Recorded No 10/02/2022 No 10/02/2022 Reliable internet access at home? Not on file 10/02/2022 Device with a working camera? Not on file Sex and Gender Information Value Date Recorded Sex Assigned at Not on file Legal Sex Male 1:21 PM EDT Gender Identity Not on file Sexual Orientation Not on file Plan of Treatment Not on file Medical Devices Not on file Insurance [facility] C3 ACO [facility] C3 ACO [facility] C3 ACO Care Teams Wildlife Technician Relationship Specialty Start Date End Date Bhargavi Huber NP PCP - General Nurse Practitioner 08/27/22 Additional Source Comments The information contained in this document represents components of the legal health record. It is not the complete legal health record.[facility]
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
--- NOTE | 2025-04-30 09:04 | ED.GENADULT ---
HPI - General Adult General Chief complaint: General Medical Stated complaint: back, leg pain. homeless Time Seen by Provider: 04/30/25 09:04 Source: patient Mode of arrival: ambulatory Limitations: no limitations History of Present Illness ED Provider: Donita English PA-C HPI narrative: Patient is a 54 year old male with no reported medical history presenting to the emergency department today with muscle soreness. Patient states that he is currently unhoused and sleeping on the floor in a tent and now his back is sore. Patient denies any bowel or bladder retention or incontinence. Patient denies any fevers / chills. Patient denies any other complaints at this time. Related Data Previous Rx's ?Medication ?Instructions ?Recorded cefadroxil 500 mg capsule 500 mg PO BID 7 days #14 caps 12/06/24 Allergies Allergy/AdvReac Type Severity Reaction Status Date / Time No Known Allergies Allergy Verified 04/30/25 07:31 Review of Systems Constitutional: Constitutional: Reports as per HPI Eyes: Eyes: Reports as per HPI ENT: Reports as per HPI Cardiovascular: Cardiovascular: Reports as per HPI Respiratory: Respiratory: Reports as per HPI Gastrointestinal: Gastrointestinal: Reports as per HPI Genitourinary: Genitourinary: Reports as per HPI Musculoskeletal: Musculoskeletal: Reports as per HPI Integumentary/Breasts: Skin/Breast: Reports as per HPI Neurologic: Reports as per HPI Psychiatric: Psychiatric: Reports as per HPI Endocrine: Endocrine: Reports as per HPI Hematologic/Lymphatic: Hematologic/Lymphatic: Reports as per HPI Allergic/Immunologic: Allergic/Immunologic: Reports as per HPI PMFSH Past Medical History Attestation statement: The following information was validated with the patient. Source: old records reviewed and nursing notes reviewed Social History Social History Substance Use Type: Crack/Cocaine and Marijuana Advance Directives: No Advance Directives Information Provided: No Physical Exam ED Vital Signs: Vital Signs - 24 hr 04/30/25 07:29 04/30/25 09:53 Temperature 98 F 98 F Pulse Rate 74 74 Respiratory Rate 16 16 Blood Pressure 145/63 H 145/63 H Pulse Oximetry 97 97 Oxygen Delivery Method Room Air Room Air BMI result Body Mass Index 18.6 Const General: cooperative, no acute distress, alert and awake Nutritional Appearance: well nourished Orientation/consciousness: patient oriented x3 HENMT Head: Yes normal to inspection and Yes atraumatic Ears: hearing grossly normal bilaterally and external ears normal General nose exam: Normal external nose present, no nasal discharge noted and no epistaxis Face and sinus: Yes normal facial exam, No abrasion and No laceration Mouth: Normal oral and palatal mucosa present, no drooling and no muffled voice Eyes General: appearance normal, both eyes and all related structures Periorbital: periorbital findings normal Eyelids: Yes eyelids normal Conjunctivae: conjunctivae normal Pupils: Equal, round and reactive pupils present EOM: EOMs intact bilaterally Neck Neck: Yes normal visual inspection and Yes full ROM Resp Effort & Inspection: normal respiratory effort and able to speak in complete sentences Back/Spine/Pelvis Cervical Spine: normal cervical lordosis and cervical ROM normal Thoracic/Lumbar Spine: thoraco-lumbar ROM normal Neuro General: patient oriented x3, moves all extremities and CN's II-XI intact bilaterally Cranial nerves: Yes Equal, round and reactive pupils present Cognition (Neuro): normal cognition Extrem General: Yes normal to inspection, Yes full ROM and Yes capillary refill normal Psych Appearance: grossly normal Mental Status: mental status grossly normal Affect: normal affect Attitude: cooperative Thought process: Normal thought process present Thought content: Normal thought content present Insight: Good insight present (Psych) Medications Administered Discontinued Medications Generic Name Dose Route Start Last Admin Trade Name Freq PRN Reason Stop Dose Admin Acetaminophen 975 mg 04/30/25 09:12 04/30/25 09:21 Acetaminophen 325 Mg Tablet PO 04/30/25 09:13 975 mg ONCE ONE Administration Medical Decision Making Medical Decision Making [facility] Narrative: Patient is a 54 year old male with no reported medical history presenting to the emergency department today with muscle soreness. Patient's physical exam was as noted in the physical exam portion of this note. I explained my physical exam findings to the patient. I answered all questions asked by the patient. Patient was given PO Tylenol for his soreness. I stressed the importance of the patient taking his medication as directed (either prescribed or as the over the counter packaging recommends). I stressed the importance of the patient following up with his primary care provider. I stressed the importance of the patient returning to the emergency department immediately if his symptoms were to worsen or if he were to develop any dizziness, shortness of breath, difficulty breathing, chest pain, blurry vision, loss of vision, nausea, vomiting, abdominal pain, fever, chills, back pain, or any other complaints. Patient verbalized agreement and understanding with this treatment plan and discharge. Differential Diagnosis Differential Diagnoses: The differential diagnosis associated with the presentation includes Muscle soreness Inadequate sleeping arrangements Admission/Observation Consideration of admission/observation: Escalation of care including admission/observation considered Patient would have been admitted to the hospital had his clinical presentation warranted hospital admission. Tests considered The following testing was considered but not selected: I considered obtaining a CT lumbar spine or an x-ray of the lumbar spine however, the patient's current clinical presentation and lack of mechanism of injury did not warrant it at this time. Social Determinants Patient?s care significantly limited by Social Determinants of Health including: Inadequate housing Discharge Plan Discharge Clinical Impression: Muscle soreness Patient Disposition: Home, Self-Care Instructions: Musculoskeletal Pain (ED) Additional Instructions: IF you are prescribed home medications and/or you are taking over the counter medications at home - it is very important you continue to do so as prescribed / directed unless told otherwise by a healthcare provider. Follow up with your primary care provider. Do your best to stay well hydrated and rest. Return to the emergency department immediately if your symptoms worsen or if you develop any numbness, tingling, dizziness, shortness of breath, difficulty breathing, chest pain, blurry vision, loss of vision, nausea, vomiting, abdominal pain, fever, chills, back pain, or any other complaints. If you do not have a primary care provider - call any of the below numbers to establish and follow up with a primary care provider. [facility] ([place]) [phone] [place] [address], [address] [facility] ([facility]) [phone] [place] [address], [address] [facility] [place], [address] [facility] ([address] [facility]) [phone] [place] [address], [address] [facility] [place], [address] [facility] ([place]) [phone] [place] [address] 2 [facility], [address] [facility] Family [facility] [phone] [place] [address], [address] Please see the information below about our Patient Portal. If you are not yet enrolled in the [facility] Patient Portal, you will receive an enrollment email invitation following your visit to any [facility] care setting. You may also self-enroll in the Patient Portal by visiting our website: [email or web address] The following information is required to access the Patient Portal: - Your [facility] Medical Record Number - Your personal home email address (must match what is in your electronic medical record, Registration staff can assist with this) - Name - Date of Capabilities of the Patient Portal: - Message some providers - View upcoming appointments - Access your health summary, medical history, and visit history - View current conditions and allergies - View procedure and lab results - View your medications, including guidelines, side effects, and precautions - Complete pre-appointment questionnaires requested by your provider - Ready summary reports of your office visits and procedures To access the Patient Portal Mobile Juan [employer], follow these directions: - Search [employer] in the [employer] Store or [employer] - Download the Juan José - Search for [facility] - Enter your login/password Housing / Shelters [facility] (Male ONLY) [address] [place] [address] [facility] [address] [place] [address] [facility] [address] [place] [address] [facility] the [facility] (Emergency Jail) [address] [place] [address] [address] [place] [address] [address] [place] [address] [facility] [address] [place] [address] [facility] [address] [place] [address] [facility] [address] [place] [address] [facility] (Male ONLY) [address] [place] [address] [facility] ([facility]) [address] [place] [address] [facility] Code Enforcement Officer [address] [place] [address] [facility] (Male ONLY) [address] [place] [address] Non-emergency line: Emergency line: [facility] [address] [place] [address] [facility] (Veterans only) [address] [place] [address] Food Resources / Community Meals DTA (Administers Food [place]) [address] [place] [address] Saturday through Saturday 8:00am - 5:00pm Emergency Food [facility]ry [address] [place] [address] Saturday, Saturday, Saturday, and Saturday 9:00am - 3:00pm [employer] [address] [place] [address] Saturday through Saturday 12:00pm - 2:00pm (Press option 6) [employer] [facility] [address] [place] [address] Wednesdays 10:00am - 6:00pm [facility] [address] [place] [address] Saturday through Saturday 10:30am - 12:00pm (Press option 4) Mobile Food Bank ([facility]) [address] [place] [address] and Saturday of each month 11:00am - 11:45am [facility] [employer] Enforcement Officer [address] [place] [address] [facility] [address] [place] [address] Food Pantry: Saturday through 9:30am - 12:00pm Baked goods and vegetables: Saturday and 10:00am - 11:00am Meals-to-go: 2:00pm - 3:00pm [facility] Program [address] (1st floor) [place] [address] Saturday and Saturday 8:30am - 4:30pm Saturday and 9:00am - 5:00pm Saturday 8:00am - 4:00pm Clothing Resources [employer] [facility] [employer] (Foster / Adoption Families ONLY) [address] [place] [address] [employer] [address] [place], [place] [id number] Give Away [facility] ([facility]) [address] [place] [address] (extension 121) [facility] [address] [place] [address] [facility] [address] [facility] (2nd floor) [place] [address] [employer] (FREE) [address] [place] [address] Prescriptions: No Action cefadroxil 500 mg capsule 500 mg PO BID 7 Days Qty: 14 0RF Interventions: ED Discharge Assessment Last Done: 04/30/25 09:53 Discharge Date/Time: 04/30/25 09:54 Print Language: Greek
[2025-04-30 09:53] VITALS: BP 145/63; PULSE 74; RESP 16; TEMP 36.6; O2SAT 97
== END 2025-04-30 09:54 | disposition home or self-care (01) ==
PROVIDERS: Emergency Provider Emergency Medicine
DX: M79.10 Myalgia, unspecified site (principal)
CPT/HCPCS: 99283

== ENCOUNTER 2025-05-01 13:58 | Inpatient (IN) | payer MEDICAID, OTHER, SELFPAY ==
--- OUTSIDE RECORDS SUMMARY | 2024-07-07 03:40 | XMS_ITS ---
Author Organization [facility] Address [address] [place] [address] Care Team Providers Care Financial Foundations Associate Name Role Phone Latisha iTdwell Primary Care Provider [phone] [facility], Nursing Unavailable [phone] REASON FOR VISIT Office: Lab draw Social History Sex Assigned At : Social History Observation Description Sex Assigned At Male Encounters Encounter Location Date Provider Diagnosis [address] [address] 07/07/2024 Nursing [facility] Plan Of Treatment No Information Progress Notes * Ronen DIASDOB:08/1970 (54 yo M)Acc No.[id number]:07/07/2024 Progress Notes Patient: Ronen MORA Provider: Yokasta rose [facility] :1970 A ge:53 Y S ex:Male Date:07/07/2024 Address:[address] [place], [place] [id number] Pcp:Latisha Tidwell Subjective: * Chief Complaints: * 1 . Office: Lab draw. Objective: * Vitals: Assessment: Plan: * Treatment: * Images: Billing Information: * Visit Code: * Procedure Codes: * Electronic signature of Dar giordano [facility] on 05/01/2025 at 02:58 PM EST Sign off status: Pending * Provider: Yokasta rose [facility] Date: 0 07/07/2024 Generated for Darshana gupta/Meño/eTalliesmitting on: 1 07/02/2024 02:58 PM EST
--- OUTSIDE RECORDS SUMMARY | 2024-07-14 04:30 | XMS_ITS ---
Author Organization [facility] Address [address] [place] [address] Care Team Providers Care Asphalt Tile Floor Layer Name Role Phone Latisha Tidwell Primary Care Provider [phone] [facility], Nursing Unavailable [phone] REASON FOR VISIT Lab Draw Social History Sex Assigned At : Social History Observation Description Sex Assigned At Male Encounters Encounter Location Date Provider Diagnosis [address] [address] 07/14/2024 Nursing [facility] Plan Of Treatment No Information Progress Notes * Ronen DIASDOB:08/1970 (54 yo M)Acc No.[id number]:07/14/2024 Progress Notes Patient: Eber LOPEZANRonen Provider: Yokasta rose [facility] :1970 A ge:53 Y S ex:Male Date:07/14/2024 Address:[address] [place], [place] [id number] Pcp:Latisha Tidwell Subjective: * Chief Complaints: * 1 . Lab Draw. Objective: * Vitals: Assessment: Plan: * Treatment: * Images: Billing Information: * Visit Code: * Procedure Codes: * Electronic signature of Dar [facility] on 05/01/2025 at 02:59 PM EST Sign off status: Pending * Provider: Yokasta rose [facility] Date: 0 07/14/2024 Generated for Darshana gupta/Meño/eTransmitting on: 1 07/02/2024 02:59 PM EST
--- OUTSIDE RECORDS SUMMARY | 2024-09-01 05:00 | XMS_ITS ---
Author Organization [facility] Address [address] [place] [phone] Care Team Providers Care Bods Developer Name Role Phone Latisha Tidwell Primary Care Provider [phone] REASON FOR VISIT Office: Chronic cre f/u Social History Sex Assigned At : Social History Observation Description Sex Assigned At Male Encounters Encounter Location Date Provider Diagnosis [address] [address] 09/01/2024 Latisha Tidwell Plan Of Treatment No Information Progress Notes * Ronen DIASDOB:08/1970 (54 yo M)Acc No.[id number]:09/01/2024 Progress Notes Patient: Eber RUSSRonen JEROME Provider: MARCOS Curtis :1970 A ge:53 Y S ex:Male Date:09/01/2024 Address:[address] [place], [place] [phone] Subjective: * Chief Complaints: * 1 . Office: Chronic cre f/u. * Medical History: Objective: * Vitals: Assessment: Plan: * Treatment: * Images: Billing Information: * Visit Code: * Procedure Codes: Care Plan Details* * Electronic signature of Bc Tidwell on 05/01/2025 at 02:58 PM EST Sign off status: Pending * Provider: MARCOS Curtis Date: 0 09/01/2024 Generated for Darshana Garza/Rolando on: 1 07/02/2024 02:58 PM EST
--- OUTSIDE RECORDS SUMMARY | 2024-10-14 04:00 | XMS_ITS ---
Author Organization [facility] Address [address] [place] [address] Care Team Providers Care City Assessor Name Role Phone Latisha Tidwell Primary Care Provider REASON FOR VISIT Office: F/u DM Social History Sex Assigned At : Social History Observation Description Sex Assigned At Male Encounters Encounter Location Date Provider Diagnosis [phone] [place] [address] 10/14/2024 Latisha Tidwell Encounter for screening for [...] Notes * Ronen DIASDOB:08/1970 (54 yo M)Acc No.[id number]:10/14/2024 Progress Notes Patient: Ronen MORA Provider: MARCOS Curtis :1970 A ge:54 Y S ex:Male Date:10/14/2024 Address:[address] [place] [address] Subjective: * Chief Complaints: * 1 . [...] signature of Bc Tidwell on 05/01/2025 at 02:59 PM EST Sign off status: Pending * Provider: MARCOS Curtis Date: 0 10/14/2024 Generated for Darshana gupta/Meño/Rockyitting on: 1 07/02/2024 02:59 PM EST
--- OUTSIDE RECORDS SUMMARY | 2025-01-16 16:00 | XMS_ITS ---
Author Organization [facility] Address [address] [place] [address] Care Team Providers Care Supervisor Grain And Yeast Plants Name Role Phone Latihsa Tidwell Primary Care Provider [phone] Migration, Provider Unavailable Unavailable [facility]IT [facility] Conversion Encounter Medications Medication SIG (Take, Route, Frequency, Duration) Notes Start Date End Date Status Farxiga 5 MG 1 tab(s) orally once a day for 90 days pls deliver to [facility] 07/13/2024 Active Gabapentin 300 MG 1 cap(s) orally 3 times a day Active KlonoPIN 0.5 MG 1 tab(s) orally 3 times a day Active Pedialyte - 100 ml oral 3x/day f or 1 days 06/08/2024 Active Suboxone 8-2 MG 2 film(s) sublingual ly once a day Active Social History Sex Assigned At : Social History Observation Description Sex Assigned At Male Encounters Encounter Location Date Provider Diagnosis [facility] [address] [place] [address] 01/16/2025 Provider Migration Type 2 diabetes mellitus with hyperglycemia E11.65 Assessments Encounter Date Diagnosis (ICD Code) Assessment Notes Treatment Notes Treatment Clinical Notes Section Notes 01/16/2025 Type 2 diabetes mellitus with hyperglycemia (ICD-10 - E11.65) Plan Of Treatment Medication Medication Name Sig Start Date Stop Date Notes Farxiga 5 MG 1 tab(s) orally once a day for 90 days 07/13/2024 pls deliver to [facility] Progress Notes * Isabel DIAS:08/1970 (54 yo M)Acc No.[id number]:01/16/2025 Patient: Ronen MORA Provider: :1970 A ge:54 Y S ex:Male Date:01/16/2025 Address:[address] [place] [address] Pcp:Latisha Tidwell Subjective: * Chief Complaints: * [facility] * Medical History: * Medications: T aking KlonoPIN 0.5 MG Tablet 1 tab(s) orally 3 times a day , Taking Gabapentin 300 MG Capsule 1 cap(s) orally 3 times a day , Taking Suboxone 8-2 MG Film 2 film(s) sublingually once a day , Taking Pedialyte - Solution 100 ml oral 3x/day Objective: * Vitals: Assessment: * Assessment: 1. T ype 2 diabetes mellitus with hyperglycemia - E11.65 (Primary) Plan: * Treatment: * Images: Billing Information: * Visit Code: * Procedure Codes: * Electronic signature of Prov ider Migration on 05/01/2025 at 02:58 PM EST Sign off status: Pending * Provider: Date: 0 01/16/2025 Generated for Darshana gupta/Meño/Rolando on: 1 07/02/2024 02:58 PM EST
--- NOTE | 2025-05-01 14:12 | ED_ITS ---
HPI - General Adult General Chief complaint: Psychiatric Symptoms Stated complaint: SI Time Seen by Provider: 05/01/25 14:01 Source: patient and EMS Mode of arrival: EMS Limitations: no limitations History of Present Illness ED Provider: Donita English PA-C HPI narrative: Patient is a 54 year old male with a history of cocaine use and current homelessness presenting to the emergency department today with increased anxiety, depression, and now suicidal. Patient states that he has been feeling much more stressed, anxious, and depressed. Patient states that he is having thoughts of hurting himself but does not have any plan. Patient states that he does not have any thoughts of hurting others. Patient denies any other complaints at this time. Related Data Home Medications ?Medication ?Instructions ?Recorded ?Confirmed No Known Home Meds 05/02/25 05/03/25 Allergies Allergy/AdvReac Type Severity Reaction Status Date / Time sweet peas Allergy Hives Uncoded 05/01/25 14:32 Review of Systems 2 Constitutional: Constitutional: Reports as per HPI Eyes: Eyes: Reports as per HPI ENT: Reports as per HPI Cardiovascular: Cardiovascular: Reports as per HPI Respiratory: Respiratory: Reports as per HPI Gastrointestinal: Gastrointestinal: Reports as per HPI Genitourinary: Genitourinary: Reports as per HPI Musculoskeletal: Musculoskeletal: Reports as per HPI Integumentary/Breasts: Skin/Breast: Reports as per HPI Neurologic: Reports as per HPI Psychiatric: Psychiatric: Reports as per HPI Endocrine: Endocrine: Reports as per HPI Hematologic/Lymphatic: Hematologic/Lymphatic: Reports as per HPI Allergic/Immunologic: Allergic/Immunologic: Reports as per HPI [facility] Past Medical History Attestation statement: The following information was validated with the patient. Source: old records reviewed and nursing notes reviewed Social History Social History Use of substances other than those prescribed or required for medical reasons: Yes Substance Use Type: Crack/Cocaine Advance Directives: No Advance Directives Information Provided: Yes Physical Exam ED Vital Signs: Vital Signs - 24 hr 05/02/25 19:46 05/02/25 22:00 05/03/25 07:25 Temperature 98.2 F 98.1 F 98.2 F Pulse Rate 79 59 52 Respiratory Rate 20 14 Blood Pressure 141/83 H 136/78 139/85 Pulse Oximetry 98 96 97 Oxygen Delivery Method Room Air Room Air Room Air BMI result Body Mass Index 19.9 Const General: cooperative, alert and awake Orientation/consciousness: patient oriented x3 HENMT Head: Yes normal to inspection and Yes atraumatic Ears: hearing grossly normal bilaterally and external ears normal General nose exam: Normal external nose present, no nasal discharge noted and no epistaxis Face and sinus: Yes normal facial exam, No abrasion and No laceration Mouth: Normal oral and palatal mucosa present, no drooling and no muffled voice Eyes General: appearance normal, both eyes and all related structures Periorbital: periorbital findings normal Eyelids: Yes eyelids normal Conjunctivae: conjunctivae normal Pupils: Equal, round and reactive pupils present EOM: EOMs intact bilaterally Resp Effort & Inspection: normal respiratory effort and able to speak in complete sentences Neuro General: patient oriented x3, moves all extremities and CN's II-XI intact bilaterally Cranial nerves: Yes Equal, round and reactive pupils present Cognition (Neuro): normal cognition Extrem General: Yes full ROM Psych Appearance: grossly normal Mental Status: mental status grossly normal Affect: Sad affect present Attitude: cooperative Thought content: Suicidality present and no homicidality Course Course Course Narrative: Time: 06:03 Date: 05/03/25 Provider: Sneha Nieto, DO Patient in physician observation for psychiatric evaluation.? No acute events reported overnight. No current complaints. VS stable.? pending IPBS. Will continue to monitor. Reevaluation(s) Reevaluation #1: 1:16 PM 05/03/2025 (PAULINO MUIR): Please then physician observation patient was admitted inpatient to our mental health unit Medications Administered Generic Name Dose Route Start Last Admin Trade Name Freq PRN Reason Stop Dose Admin Nicotine 14 mg 05/01/25 19:15 05/01/25 21:06 Nicotine 14 Mg Patch.Td24 TRANSDERMA 14 mg ONCE SHINE Administration Discontinued Medications Generic Name Dose Route Start Last Admin Trade Name Freq PRN Reason Stop Dose Admin Acetaminophen 975 mg 05/02/25 19:19 05/02/25 20:08 Acetaminophen 325 Mg Tablet PO 05/02/25 19:20 Not Given ONCE ONE Al Hydroxide/Mg Hydroxide 30 ml 05/02/25 20:24 05/02/25 20:29 Magnesium Hydrox/Alum Hydrox 30 Ml Oral.Susp PO 05/02/25 20:25 30 ml ONCE ONE Administration Calcium Carbonate 1,500 mg 05/02/25 14:09 05/02/25 14:56 Calcium Carbonate 750 Mg Tab.Chew PO 05/02/25 14:10 1,500 mg ONCE ONE Administration Loperamide HCl 2 mg 05/02/25 20:24 05/02/25 20:29 Loperamide Hcl 2 Mg Capsule PO 05/02/25 20:25 2 mg ONCE ONE Administration Loperamide HCl 4 mg 05/02/25 22:16 05/02/25 22:20 Loperamide Hcl 2 Mg Capsule PO 05/02/25 22:17 4 mg ONCE ONE Administration Magnesium Oxide 800 mg 05/01/25 17:58 05/01/25 18:41 Magnesium Oxide 400 Mg Tablet PO 05/01/25 17:59 800 mg ONCE ONE Administration Oxycodone HCl 5 mg 05/02/25 19:52 05/02/25 20:12 Oxycodone Hcl Immed Release 5 Mg Tablet PO 05/02/25 19:53 5 mg ONCE ONE Administration Medical Decision Making Medical Decision Making MDM Narrative: Patient is a 54 year old male with a history of cocaine use and current homelessness presenting to the emergency department today with increased anxiety, depression, and now suicidal. Patient's physical exam was as noted in the physical exam portion of this note. Patient's blood work was unremarkable. Patient's EKG showed no obvious evidence of arrhythmia, ischemia, or infarct. Patient's QT interval was slighted elongated. Patient given PO magnesium. Patient COVID-19 positive. Asymptomatic. I explained my physical exam findings as well as all test results to the patient. I answered all questions asked by the patient. Patient placed in observation at 1426 pending CARE team evaluation. Differential Diagnosis Differential Diagnoses: The differential diagnosis associated with the presentation includes SI Using the ER for temporary housing Depression Admission/Observation Consideration of admission/observation: Escalation of care including admission/observation considered Patient's disposition will be determined after CARE team evaluation. Lab Data [facility] Lab Attestation statement: I reviewed the patient's lab results. My interpretation of these results are in the MDM Rationale portion of this note. 05/01/25 14:59 05/01/25 14:59 Labs: Lab Results 05/01/25 Range/Units 14:59 WBC 4.2 L (4.8-10.8) X10*3/uL RBC 4.70 (4.60-5.80) X10*6/uL Hgb 14.1 (14.0-18.0) g/dl Hct 41.6 L (42.0-52.0) % MCV 88.5 (80.0-98.0) fL MCH 30.0 (27.0-33.0) pg MCHC 33.9 (31.0-36.0) g/dl RDW 15.3 (11.0-16.0) % Plt Count 239 (160-400) X10*3/uL MPV 9.2 L (9.4-12.4) fL Immature Gran % (Auto) 0.2 (0.0-0.4) % Neut % (Auto) 64.3 (45-73) % Lymph % (Auto) 27.8 (20-40) % Dougherty % (Auto) 5.8 (2-11) % Eos % (Auto) 1.7 (0-4) % Baso % (Auto) 0.2 (0-2) % Lymph # (Auto) 1.2 (1.2-4.9) X10*3/uL Dougherty # (Auto) 0.2 (0.1-1.2) X10*3/uL Eos # (Auto) 0.1 (0.0-0.4) X10*3/uL Baso # (Auto) 0.0 (0.0-0.2) X10*3/uL Abs Immat Gran (auto) 0.01 (0.00-0.03) X10*3/uL Absolute Neuts (auto) 2.7 (2.0-8.3) x10*3/uL Absolute Nucleated RBC 0.000 (0.0-0.012) X10*3/uL Nucleated RBC % (auto) 0.0 (0.0-0.2) /100WBC Sodium 138 (135-145) mmol/L Potassium 3.4 (3.3-5.1) mmol/L Chloride 103 (96-108) mmol/L Carbon Dioxide 27 (22-29) mmol/L Anion Gap 11 L (12-20) BUN 16 (9-16) mg/dL Creatinine 0.80 (0.5-1.4) mg/dL Estim Creat Clear Calc 83.6 Estimated GFR > 60 Random Glucose 90 (60-115) mg/dL Calcium 8.2 L D (8.4-10.2) mg/dL Total Bilirubin 0.3 (0.0-1.0) mg/dL AST 25 (5-37) U/L ALT 38 (0-40) U/L Alkaline Phosphatase 86 (39-117) U/L Total Protein 7.2 (6.5-8.0) g/dL Albumin 4.0 (3.5-5.0) g/dL Salicylates < 5.0 L (15-30) mg/dL Urine Opiates Screen Not Detected (Not Detect) Ur Buprenorphine Scrn Not Detected (Not Detect) ng/mL Ur Oxycodone Screen Not Detected (Not Detect) ng/mL Urine Methadone Screen Not Detected (Not Detect) ng/mL Urine Fentanyl Screen Not Detected (Not Detect) Acetaminophen < 3 (<30) mcg/mL Ur Barbiturates Screen Not Detected (Not Detect) Ur Phencyclidine Scrn Not Detected (Not Detect) Ur Amphetamines Screen Not Detected (Not Detect) U Benzodiazepines Scrn Not Detected (Not Detect) Urine Cocaine Screen POSITIVE H (Not Detect) U Marijuana (THC) Screen Not Detected (Not Detect) Ethyl Alcohol < 10 mg/dL COVID-19 (POLLO) Positive A (Negative) COVID-19 Clin Com See Note Independent Historian Clinical information obtained from an independent historian. History obtained from or confirmed by: EMS (EMS provided additional history and confirmed the history provided by the patient. ) Discharge Plan Discharge Clinical Impression: Depression, Suicidal ideation Patient Disposition: Admitted As Inpatient Interventions: [place]-Suicide Risk Severity Scale Last Done: 05/02/25 19:11
[2025-05-01 14:19] VITALS: BP 130/80; PULSE 64; O2SAT 98
--- NOTE | 2025-05-01 14:26 | ECG_ITS ---
Test Reason : OUD Blood Pressure : */* mmHG Vent. Rate : 63 BPM Atrial Rate : 63 BPM P-R Int : 114 ms QRS Dur : 76 ms QT Int : 482 ms P-R-T Axes : 77 69 47 degrees QTcB Int : 493 ms Poor data quality Normal sinus rhythm Right atrial enlargement Minimal voltage criteria for LVH, may be normal variant ( Sokolow-Gonzalez ) Prolonged QT Abnormal ECG No previous ECGs available Referred By: Donita English Electronically Signed By: KRISSY TELLO MD
[2025-05-01 14:30] VITALS: BP 155/96; PULSE 67; RESP 16; TEMP 36.8; O2SAT 99; BMI 19.9
--- OUTSIDE RECORDS SUMMARY | 2025-05-01 14:58 | XMS_ITS | Clinical Summary ---
Author Organization [employer] Address [address] [facility] [address] [place] [address] Care Team Providers Care Road Contractor Name Role Phone Ravi, Linda Unavailable Unavailable [...] Elevated LFTs 08/31/2022 Schizoaffective disorder, bipolar type ([facility]) 08/28/2022 Left foot drop 08/28/2022 Chronic pain of right knee 08/28/2022 Opioid use disorder in remission 08/28/2022 Insomnia 08/28/2022 Bipolar affective disorder, current episode mixe d ([facility]) 08/28/2022 Sheltered homelessness 08/28/2022 Resolved Problems Problem [...] 2:53 PM EDT) Micro-Albumin <12.0 (<20) MG/L [facility] Comment: The urine microalbumin test is designed to monitor renal function. When screening for Bence Jeffries proteinuria, urine electrophoresis is recommended. Malb/Creat Ratio Unable to calculate (0-20) MG/GM [facility] Urine Creat For Micro Albumin 84.6 MG/DL [facility] Comment: Testing performed or reported by [facility], a Service of [facility], [address] [place] [address] Winsome Antonio MD, Chief Controller Center [facility]# [id number] 08/27/2022 2:53 PM EDT 08/27/2022 9:53 PM EDT [facility] LAB URINE ORDERABLES Ashley amador Result [facility] [address] [place] [address] * Hepatitis C Antibody with Reflex to HCV RNA,PCR w/Reflex to Genotype, LiPA (08/27/2022) [facility] LAB BLOOD ORDERABLES Ashley l Result Performing Organization Address City/[facility]/ZIP Co de Phone Number EXTERNAL LAB * HIV-1/2 Antigen and Antibodies, Fourth Generation, with Reflexes (08/27/2022) Blood Venous blood specimen / Unknown [facility] LAB BLOOD ORDERABLES Ashley l Result EXTERNAL LAB * Hemoglobin A1c (08/27/2022) Blood Venous blood specimen / Unknown [facility] LAB BLOOD ORDERABLES Ashley l Result EXTERNAL LAB * Lipid Panel, Standard (08/27/2022) Blood Venous blood specimen / Unknown [facility] LAB BLOOD ORDERABLES Ashley l Result Performing Organization Address City/[facility] Co de Phone Number EXTERNAL LAB from Last 3 Months or Most Recently Relevant to Health Maintenance Insurance [facility] [address] Contractor Relationship Specialty Start Date End Date Linda Rodrigues Navigator Financial Counseling [facility] Assistance Services 07/31/22
--- OUTSIDE RECORDS SUMMARY | 2025-05-01 14:59 | XMS_ITS | Clinical Summary ---
Author Organization [facility] Address [address] [place] [address] Phone Care Team Providers Care Retail Account Executive Name Role Phone Bhargavi Huber SEAMUS Primary [...] file Medical Devices Not on file Insurance [facility] C3 ACO [facility] C[facility] ACO [facility] C3 ACO Care Teams Retail Account Executive Relationship Specialty Start Date End Date Bhargavi Huber NP PCP - General Nurse Practitioner 08/27/22 Additional Source Comments The information contained in this document represents components of the legal health record. It is not the complete legal health record.[facility]
--- OUTSIDE RECORDS SUMMARY | 2025-05-01 14:59 | XMS_ITS | Encounter Summary ---
Author Organization [facility] Address [address] [place] [address] Phone Care Team Providers Care Loan Broker Name Role Phone Bhargavi Huber SUPERVISOR MACHINING Primary Care Provider Encounter Details Date Type Department Care Team (Late st Contact Info) Description 08/29/2022 Transcribe Orders [facility] Specimen Processing [address] [place] [address] Anne Richard MD [address] [place] [address] [email or web address] Social History Tobacco Use Types Packs/Day Years [...] on filedocumented in this encounter Care Teams Loan Broker Relationship Specialty Start Date End Date Bhargavi Huber NP PCP - General Nurse Practitioner 08/27/22 documented as of this encounter Additional Source Comments The information contained in this document represents components of the legal health record. It is not the complete legal health record.[facility]
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
[2025-05-01 15:09] LABS: Hematocrit 41.6 % (42.0-52.0); Hemoglobin 14.1 g/dl (14.0-18.0); Imm Gran Abs Auto 0.01 X10*3/uL (0.00-0.03); Imm Gran Pct Auto 0.2 % (0.0-0.4); Lymphocytes Absolute Auto 1.2 X10*3/uL (1.2-4.9); MANUAL DIFF FLAG NO; Mean Corpuscular HGB Conc 33.9 g/dl (31.0-36.0); Mean Corpuscular Hemoglobin 30.0 pg (27.0-33.0); Mean Corpuscular Volume 88.5 fL (80.0-98.0); NRBC Abs Auto 0.000 X10*3/uL (0.0-0.012); NRBC Pct Auto 0.0 /100WBC (0.0-0.2); Platelet Count 239 X10*3/uL (160-400); Red Blood Count 4.70 X10*6/uL (4.60-5.80); White Blood Count 4.2 X10*3/uL (4.8-10.8)
[2025-05-01 15:16] LABS: COVID-19 Test Positive (Negative)
[2025-05-01 15:24] LABS: Cannabinoid Screen Urine Not Detected (Not Detect)
[2025-05-01 15:34] LABS: Alanine Aminotransferase 38 U/L (0-40); Albumin Level 4.0 g/dL (3.5-5.0); Alkaline Phosphatase 86 U/L (39-117); Anion Gap 11 (12-20); Aspartate Amino Transferase 25 U/L (5-37); Blood Urea Nitrogen 16 mg/dL (9-16); Calcium 8.2 mg/dL (8.4-10.2); Carbon Dioxide 27 mmol/L (22-29); Chloride 103 mmol/L (96-108); Creatinine Clr Calc Pharmacy 83.6; Estimated Glomerular Filt Rate > 60; Potassium 3.4 mmol/L (3.3-5.1); Sodium 138 mmol/L (135-145); Total Protein 7.2 g/dL (6.5-8.0)
[2025-05-01 15:36] LABS: Acetaminophen LAB < 3 mcg/mL (<30); Salicylate < 5.0 mg/dL (15-30)
[2025-05-01 16:28] VITALS: BP 153/82; PULSE 67; RESP 16; TEMP 36.7; O2SAT 99
--- NOTE | 2025-05-01 19:49 | PC.NURSE ---
Report taken from Sofie RN, assumed care of pt at this time. A&Ox3, skin wnl for ethnicity, respirations even unlabored. Resting with eyes closed, easily awoken. Pt observer at bedside for safety. Safety maintained. Pending dispo by Care team.
[2025-05-01 20:46] VITALS: BP 135/83; PULSE 66; RESP 19; TEMP 36.6; O2SAT 98
[2025-05-01] MEDS: Nicotine 14 MG PATCH.TD24 TRANSDERMA (21:06)
--- NOTE | 2025-05-01 23:36 | PC.NURSE ---
Pt resting in bed eyes closed NAD, pt observer remains at bedside for safety, safety maintained.
--- NOTE | 2025-05-02 02:18 | PC.NURSE ---
Pt continues to rest in bed eyes closed NAD. Pt observer at bedside for safety, safety maintained. IPLOC bedsearch initiated.
[2025-05-02 06:00] VITALS: BP 130/84; RESP 18; O2SAT 96
--- NOTE | 2025-05-02 07:26 | PC.NURSE ---
Care of Pt assumed at change of shift (0700.) Pt is observed to be awake at this time. 1:[address] Pt ambulates to bathroom with rollator. Breakfast try provided at bedside. ID precautions in place. NAD noted at this time. Will continue to monitor.
--- NOTE | 2025-05-02 14:46 | PHA.MEDREC ---
Pharmacy Consult ? Medication Reconciliation Pharmacy has completed the medication reconciliation. Spoke to patient who confirmed he's not taking any medications right now.
[2025-05-02 19:46] VITALS: BP 141/83; PULSE 79; RESP 20; TEMP 36.8; O2SAT 98
--- NOTE | 2025-05-02 20:01 | PC.NURSE ---
pt c/o 02/12 left ankle pain d/t no wearing ankle brace. pt already has bilateral knee braces in place. pt provided with ankle brace out of his belongings, okayed by vocational placement specialist. sitter in place. pt also requesting oxycodone, using patches at home. provider aware, oxycodone PO ordered.
[2025-05-02] MEDS: oxyCODONE HCl Immed Release 5 MG TABLET PO (20:12)
[2025-05-02] MEDS: Magnesium Hydrox/Alum Hydrox 30 ML ORAL.SUSP PO (20:29)
--- NOTE | 2025-05-02 20:44 | PC.NURSE ---
pt medicated per MAR for pain, diarrhea, and GI upset. all requests and needs are met at this time. pt resting comfortably.
[2025-05-02 22:00] VITALS: BP 136/78; PULSE 59; TEMP 36.7; O2SAT 96
--- NOTE | 2025-05-02 23:57 | PC.NURSE ---
Took over care at 23:00 from VIKTOR Burns, pt resting at this time.
--- NOTE | 2025-05-03 02:40 | PC.NURSE ---
pt sleeping at this time, no sign of distress, pt is on 1:1 for SI
--- NOTE | 2025-05-03 04:10 | PC.NURSE ---
pt resting in bed coffee given.
--- NOTE | 2025-05-03 07:09 | PC.NURSE ---
report given to VIKTOR Hernandez
[2025-05-03 07:25] VITALS: BP 139/85; PULSE 52; RESP 14; TEMP 36.8; O2SAT 97
--- NOTE | 2025-05-03 07:44 | PC.NURSE ---
pt is asleep, it was understood from shift report that patient was awaiting care team eval for si. sitter is at bedside.
[2025-05-03 12:44] LABS: Glucose, Whole Blood 88 mg/dL (60-115)
[2025-05-03 13:11] VITALS: BP 136/79; PULSE 62; RESP 16; TEMP 36.9; O2SAT 98
[2025-05-03 14:44] VITALS: BP 132/66; PULSE 66; RESP 16; TEMP 37.4; O2SAT 96
[2025-05-03] MEDS: Flu Vacc TS2025-26(6mo up)/PF 0.5 ML SYRINGE IM (16:44)
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
[2025-05-03 19:57] VITALS: BP 123/64; PULSE 85; RESP 16; TEMP 36.9; O2SAT 96
[2025-05-03 21:19] VITALS: BP 143/88; PULSE 77; RESP 16; TEMP 36.3; O2SAT 95
--- NOTE | 2025-05-04 07:17 | PC.NURSE ---
Ronen was up x 2 during the night to eat cereal. He wanted to eat in the kitchen, but due to being COVID + he was redirected to eat in his room. Patient was not happy about going back to his room, but did comply.
--- NOTE | 2025-05-04 08:48 | P.CONHOSP_ITS ---
History of Present Illness Data of Consult Service Date: 05/04/25 Primary Care Provider: Unknown Physician HPI Reason for consult: Medical consult 54-year-old male with a past medical history of cocaine use, depression, anxiety complicated by homelessness presents to the emergency room with increased depression and suicidal ideation. His initial workup revealed no leukocytosis, no anemia, no electrolyte imbalances, no evidence of liver or renal dysfunction. U tox positive for cocaine. Positive COVID test 05/01/2025, he is asymptomatic. Urine without evidence of infection. Patient reports chronic pain in bilateral knees ankle and back, using a walker. Review of Systems 2 Review of Systems: Denies any shortness of breath, chest pain, headaches, dysuria, abdominal pain or discomfort, nausea, vomiting or diarrhea. Denies fever or chills. [facility] Medical History (Updated 05/04/25 @ 12:13 by Marianela Miramontes DNP) Homeless TBI (traumatic brain injury) Alcohol use disorder Cocaine use disorder Schizoaffective disorder Social History Household Members: None Housing: Homeless Do you presently have visiting nurse or other home services: No Patient Tobacco Use Status: Current everyday Tobacco user Tobacco use type: Cigarette Cigarettes Per Day: 7 Years Smoked: 11 Smoked in Last 30 Days: Yes Patient Interested in Nicotine Replacement: Yes Patient Given Instructions on How to Stop Smoking: No Second Hand Smoke Exposure: No Use of substances other than those prescribed or required for medical reasons: Yes Substance Use Type: Crack/Cocaine Currently Displaying Signs/Symptoms of Drug Intoxication Withdrawal: No Have you been hit, kicked, punched, or otherwise hurt by someone within the past year? If so, by whom?: No Do you feel safe in your current relationship?: Yes Is there a partner from a previous relationship who is making you feel unsafe now?: No Advance Directives: No Advance Directives Information Provided: Yes Do you have thoughts of harming others: None Do you have a plan to hurt others: No Plan Recently lost weight without trying: Unsure service: No Sexual orientation: Straight/Heterosexual Meds Allergies Allergy/AdvReac Type Severity Reaction Status Date / Time sweet peas Allergy Hives Uncoded 05/01/25 14:32 Active Medications: Current Medications Acetaminophen (Acetaminophen 325 Mg Tablet) 650 mg PO Q6H PRN PRN Reason: Headache/Pain, Scale 1-10 Al Hydroxide/Mg Hydroxide (Magnesium Hydrox/Alum Hydrox 30 Ml Oral.Susp) 30 ml PO Q6H PRN PRN Reason: Heartburn/Nausea Gabapentin (Gabapentin 300 Mg Capsule) 300 mg PO TID [facility] Last Admin: 05/03/25 21:35 Dose: 300 mg Hydroxyzine HCl (Hydroxyzine Hcl 25 Mg Tablet) 25 mg PO Q6H PRN PRN Reason: mild anxiety Lorazepam (Lorazepam 1 Mg Tablet) 1 mg PO Q2H PRN PRN Reason: CIWA 6-10 Last Admin: 05/03/25 21:35 Dose: 1 mg Lorazepam (Lorazepam 1 Mg Tablet) 2 mg PO Q2H PRN PRN Reason: CIWA 11 and above Magnesium Hydroxide (Milk Of Magnesia 30 Ml Oral.Susp) 30 ml PO DAILY PRN PRN Reason: Constipation Nicotine (Nicotine 14 Mg Patch.Td24) 14 mg TRANSDERMA ONCE [facility] Last Admin: 05/01/25 21:06 Dose: 14 mg Nicotine Polacrilex (Nicotine Polacrilex 2 Mg Gum) 4 mg BUCCAL Q2H PRN PRN Reason: Nicotine Cravings Trazodone HCl (Trazodone Hcl 50 Mg Tablet) 50 mg PO BEDTIME MRX1 PRN PRN Reason: Insomnia Home Medications ?Medication ?Instructions ?Recorded ?Confirmed ?Last Taken ?Type No Known Home Meds 05/02/25 05/03/25 Un known History Physical Exam 2 Vital Signs and Narrative: Vital Signs: Last Vital Signs Temp 97.3 F 05/03/25 21:19 Pulse 77 05/03/25 21:19 Resp 16 05/03/25 21:19 BP 143/88 H 05/03/25 21:19 Pulse Ox 95 05/03/25 21:19 O2 Del Method Room Air 05/03/25 21:19 BMI result Body Mass Index 19.9 Alert and oriented X3, cooperative. Answers questions. Neuro: CN II-X11 intact, no deficits, visual acuity intact EYES: PERRLA, EOM intact ENT: Hearing intact, MMM Cardiac: S1 S2 RRR, No ectopy Pulmonary: lungs clear to auscultation, No increased WOB. Abdominal: BS active in all 4 quadrants, no guarding or tenderness MSK: Strength 5/5 upper and lower extremities. Ambulates with steady gait, knee braces bilaterally. Ankle brace : Deferred Extremities: No edema in lower extremities Psych: Mood stable, Quiet and cooperative. Skin: Warm and dry, Intact Results Labs 05/01/25 14:59 05/01/25 14:59 Labs: Laboratory Results - last 24 hr 05/03/25 12:40 POC Glucose 88 Assessment and Plan (1) Chronic pain: Status: Acute Plan 54-year-old male with past medical history as listed below presented to emergency department with increased depression anxiety suicidal ideations. Now admitted for inpatient stabilization. Schizoaffective disorder/EtOH use disorder/cocaine use disorder/depression complicated by homelessness and traumatic brain injury Treatment per psychiatric team CIWA scale. Chronic pain knees and ankles Using a walker Continue gabapentin and Tylenol Thank you for allowing me to participate in the care of this patient. Will follow with you, please notify medical provider with any changes in condition or concerns.
[2025-05-04] MEDS: Nicotine 21 MG PATCH.TD24 TRANSDERMA (09:07)
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
[2025-05-04 10:13] LABS: Free T4 (Free Thyroxine) 1.00 ng/dL (0.71-1.85); Thyroid Stimulating Hormone 0.99 uIU/mL (0.32-4.0)
[2025-05-04 10:21] LABS: Cholesterol 109 mg/dL (<200); HDL Cholesterol 30 mg/dL (>40); Magnesium 1.4 mg/dL (1.6-2.6); Triglycerides 198 mg/dL (<150)
[2025-05-04 10:25] LABS: Folate 4.5 ng/mL (> or = 4.0); Vitamin B12 291 pg/mL (200-900)
[2025-05-04] MEDS: Albuterol Sulfate 90 MCG 8 GM INHALER 2 PUFF INHALE (11:14)
[2025-05-04] MEDS: Bismuth Subsalicylate 262 MG TABLET PO ×2 (11:14→17:17)
[2025-05-04 20:00] VITALS: BP 123/63; PULSE 67; TEMP 36.8; O2SAT 97
[2025-05-05 08:00] VITALS: BP 122/60; PULSE 60; RESP 16; TEMP 36.4; O2SAT 99
[2025-05-05] MEDS: Nicotine 21 MG PATCH.TD24 TRANSDERMA (09:24)
--- NOTE | 2025-05-05 09:26 | PM.PSYDC ---
DS: Providers Provider Date of admission: 05/03/25 11:34 Date of discharge: 05/05/25 Primary care physician: Unknown Physician Attending physician on admission: Pedro Mills Attending physician on discharge: Pedro Mills DS: Diagnosis Discharge Diagnosis (1) Schizoaffective disorder: Status: Acute (2) Cocaine use disorder: Status: Acute (3) Alcohol use disorder: Status: Acute (4) TBI (traumatic brain injury): Status: Acute (5) Homeless: Status: Acute (6) Personality disorder: Status: Acute DS: Medications Discharge Medications Home Medications: Previous Rx's ?Medication ?Instructions ?Recorded albuterol sulfate 90 mcg/actuation 2 puff inhalation RQ4H PRN 05/05/25 aerosol inhaler (Ventolin HFA) Shortness Of Breath 30 days #6.7 grams bismuth subsalicylate 262 mg 262 mg PO QID PRN GERD 14 days #30 05/05/25 tablet ([place] Bismuth) tabs lidocaine 5 % topical ointment 1 appl topical Q6H PRN knee pain 05/05/25 30 days #30 grams magnesium oxide 400 mg (241.3 mg 400 mg PO BIDPC 30 days #60 tabs 05/05/25 magnesium) tablet olanzapine 10 mg tablet 10 mg PO BEDTIME 30 days #30 tabs 05/05/25 Mental Status Exam Mental Status Exam Narrative: Pt is alert and oriented; behavior is cooperative, even somewhat friendly and calm; he is in good behavioral and impulse control; patient is not in distress; dressed in casual attire with unkempt hair, scruffy and somewhat disheveled; mood is described as better and affect congruent, brighter and calm; eye contact appropriate; Speech is normal rate, volume and prosody and not pressured; no psychomotor agitation/retardation present; thought process is organized and goal directed; Thought content is on tx and discharge; otherwise pertinent to relevant topics and without any delusional content, paranoid ideations or grandiosity; denies any SI/HI. Denies VH; reports intermittent AH which is chronic and not bothersome. Patient does not appear internally preoccupied. Patients insight and judgment appear intact. Data Data Completed and Pending Completed studies during hospitalization [Text1]: 05/01/25 05/03/25 05/04/25 14:59 12:40 09:25 WBC 4.2 L RBC 4.70 Hgb 14.1 Hct 41.6 L MCV 88.5 MCH 30.0 MCHC 33.9 RDW 15.3 Plt Count 239 MPV 9.2 L Immature Gran % (Auto) 0.2 Neut % (Auto) 64.3 Lymph % (Auto) 27.8 Norton % (Auto) 5.8 Eos % (Auto) 1.7 Baso % (Auto) 0.2 Lymph # (Auto) 1.2 [place] # (Auto) 0.2 Eos # (Auto) 0.1 Baso # (Auto) 0.0 Abs Immat Gran (auto) 0.01 Absolute Neuts (auto) 2.7 Absolute Nucleated RBC 0.000 Nucleated RBC % (auto) 0.0 Sodium 138 Potassium 3.4 Chloride 103 Carbon Dioxide 27 Anion Gap 11 L BUN 16 Creatinine 0.80 Estim Creat Clear Calc 83.6 Estimated GFR > 60 POC Glucose 88 Random Glucose 90 Estimat Average Glucose 128 Hemoglobin A1c % 6.1 H Calcium 8.2 L D Magnesium 1.4 L* Total Bilirubin 0.3 AST 25 ALT 38 Alkaline Phosphatase 86 Total Protein 7.2 Albumin 4.0 Triglycerides 198 H Cholesterol 109 LDL Cholesterol, Calc 40 HDL Cholesterol 30 L Vitamin B12 291 Folate 4.5 TSH 0.99 Free T4 1.00 Salicylates < 5.0 L Urine Opiates Screen Not Detected Ur Buprenorphine Scrn Not Detected Ur Oxycodone Screen Not Detected Urine Methadone Screen Not Detected Urine Fentanyl Screen Not Detected Acetaminophen < 3 Ur Barbiturates Screen Not Detected Ur Phencyclidine Scrn Not Detected Ur Amphetamines Screen Not Detected U Benzodiazepines Scrn Not Detected Urine Cocaine Screen POSITIVE H U Marijuana (THC) Screen Not Detected Ethyl Alcohol < 10 COVID-19 (POLLO) Positive A COVID-19 Clin Com See Note DS: Summary Hospital Course Hospital Course: HPI: Patient is a 54-year-old male with a reported history of schizoaffective disorder, cocaine abuse, currently COVID+, who presents to the ED after being found unconscious by his , who called EMS (received Narcan which patient said helped, although UDS neg for opiods) and reporting in the ED depression and SI along with visual hallucinations. On the unit patient is irritable and a limited historian, not wanting to interact with technical proposal writer other than to ask a few basic questions. He says he wants to discharge, wants to go [facility]; he says he has been drinking 10 drinks a day for an undisclosed amount of time and is in withdrawal. He says that he smokes cocaine and heroin (though UDS only positive for cocaine). Patient says that the only medications he takes are clonazepam, lorazepam, gabapentin and Suboxone and that he does not need anything else. He says if you give me Seroquel he will see how angry I get. Patient said he had SI prior to coming in to the unit but denies all SI now. He said he was seeing things but denies any VH, saying it is resolved and thinks it was just a part of withdrawal. He says he has ongoing chronic AH but it is in the background in it does not bother him and he just ignores it. Patient said the reason he was found passed out and unresponsive was because someone gave him Tylenol which caused him to pass out. He does not think it has anything to do with drinking alcohol or opiate abuse. Patient willing to sign a CV but said he wanted to then signed a 3 day notice, and and that he wants discharge in 3 days. Collateral sources report patient has not been on medication for 3 years. Other information gleaned from collateral sources Hospital course: Patient is not very interested in treatment and says all SI and VH are resolved. It seems that patient is likely close to baseline. Patient had an incident of swearing at staff made some vague threats but calmed down and was redirectable; he remained in behavioral and impulse control thus forward. Will start him on CIWA and gabapentin for withdrawal; at this point, will not continue gabapentin odd discharge given his chronic struggles with substance abuse. Patient found to have low magnesium; he agreed to take 1 dose of magnesium but said he would refuse any further doses. Patient has been homeless for several years, living in a tent and capably relying on his own resources; initially patient does not seem to want help with much other than to get a new walker. Initially patient did not want any help with substance abuse. -Utilizing Bilateral Knee Braces and L Ankle brace -Patient started on Zyprexa 5 mg b.i.d. -Magnesium 400 mg b.i.d. to replenish mild hypomagnesemia The following day, patient was not in a much better mood. He was calm, polite and very reasonable. He is in good behavioral and impulse control and organized in speech and behavior and reported feeling better. No depression, no SI and appreciates the help he received and that Zyprexa has been helpful. Patient also decided to continue taking magnesium oxide. Patient hardly scoring on CIWA denies any withdrawal symptoms. He reports continued intermittent AH but reiterates that this is chronic and does not bother him. He wants to discharge saying [facility] will [facility]; he knows there are currently no open beds there but he says he has a contact there and if he can not get in he has other resources. Of note patient has been self sufficiently living un-housed for the past 3 years and remains quite resourceful. Patient is hoping to discharge early enough so he can go by himself some clothing and boots. Occupational Health Nursing Director discussed with him his hypomagnesemia, the risks and need to take p.o. magnesium oxide and follow up with an out patient provider. Patient understood and agreed to continue taking it. He said he would follow up with PCP at [facility] and an appointment was made for him for May 19. Patient also asked to get on Suboxone saying I do not want to relapse. He wanted to start with 8/2 mg films and said he would follow up with comprehensive care on his own in the community. Occupational Health Nursing Director agreed, started him on Suboxone on the unit and gave him a 14 day supply. Impression: Patient has returned to baseline. He is in good behavioral and impulse control and organized in speech and behavior. He understands his symptoms and agrees to continue with treatment. His mood is better and SI in VH her resolved. Patient is also on Suboxone which will help him to remain sober which he says has been effective in the past. Patient also has a follow up appointment [facility] which he says he will attend. Patient of course remains at risk for relapse and will likely at some point again engage in unsafe behaviors; however, this is his chronic struggle and will not resolve with longer stay on inpatient unit. Patient has consistently demonstrated that he is able to take care of himself in the community. Patient is asking for discharge and has a 3 day notice submitted. Patient is not in imminent risk of harm to self or others and appropriate to return to the community for treatment. His request for discharge honored. Status at Discharge Functional status at discharge: independent ambulation Overall status at discharge: patient is back to baseline Time Spent with Patient Time attestation: Total time managing care of this patient today __45__ minutes. Time spent: Greater than 30 minutes Specific discharge activities: Met with patient; discussed with team; charting; appointment Discharge Plan Discharge Anticipated Discharge Date/Time: 05/05/25 11:30 Patient Disposition: [facility] Discharge Diagnosis: schizoaffective disorder Referrals: [facility] [Other] - 1 Week Referral Note: [facility] open during the day only! They offer one meal and positive structure [facility] Support [facility] [Other] - 05/12/25 8:00 am Referral Note: Follow-up intake appointment [facility] [Other] - 05/10/25 9:00 am Referral Note: Walk-in times Saturday or from 9 am - 4 pm Walk-in times Wednesdays from 1 pm - 4pm [facility] [Other] - 05/19/25 9:30 am Referral Note: Intake/follow-up appointment with Ly Worthy,Unknown J [Primary Care Provider, Medical] - 05/19/25 9:30 am Discharge Medications: New albuterol sulfate [Ventolin HFA] 90 mcg/actuation Hfa Aerosol Inhaler 2 puff inhalation RQ4H PRN (Reason: Shortness Of Breath) 30 Days Qty: 6.7 0RF olanzapine 10 mg tablet 10 mg PO BEDTIME 30 Days Qty: 30 0RF [place] Bismuth 262 mg Tablet 262 mg PO QID PRN (Reason: GERD) 14 Days Qty: 30 0RF lidocaine 5 % Ointment 1 appl topical Q6H PRN (Reason: knee pain) 30 Days Qty: 30 0RF Protocol: Apply to: Apply to: b/l knees magnesium oxide 400 mg (241.3 mg magnesium) Tablet 400 mg PO BIDPC 30 Days Qty: 60 0RF buprenorphine-naloxone [Suboxone] 8-2 mg film 1 film buccal DAILY 14 Days Qty: 14 0RF Discharge Orders: Discharge Order (Routine); Ordered 05/05/25 Ordered By: Pedro Mills Diet: Diabetic diet Activity on Discharge: As tolerated Stand Alone Forms: Patient Portal Discharge page Print Language: Maldivian Care Plan Goals: Maintain mood and safe behaviors Take medications as prescribed Continue to pursue sobriety Practice coping skills Continue with outpatient providers and reach out to them as needed Health Concerns: Mood stability and behaviors Sobriety Mild hypomagnesemia Pre-diabetes Chronic Bilateral knee, ankle pain status post injury; uses walker Plan of Treatment: Follow up with your PCP, psychiatric provider and other outpatient providers regarding above concerns Take medications as prescribed Assessment: Risk assessment at time of discharge:? Patient was interviewed prior to discharge and found to be fully oriented and without any SI or HI. Patient has improved insight and judgment and will continue to seek treatment. Patient is not in imminent risk of harm to self or others and has a safety plan that includes presenting to the closest ER or calling 911 if feeling unsafe.? Patient has been observed closely by nursing and unit staff throughout admission; patient has demonstrated appropriate behaviors and impulse control
[2025-05-05] MEDS: Albuterol Sulfate 90 MCG 8 GM INHALER 2 PUFF INHALE (10:06)
== END 2025-05-05 11:26 | disposition home or self-care (01) | DRG 750 ==
LOC: HO.ED 05-03 09:37 → HO.PM5 05-03 13:15
PROVIDERS: Physician Assistant Medical; Admitting Provider Clinical Nurse Specialist Psychiatric/Mental Health, Adult; Emergency Provider Emergency Medicine; Visit Provider Clinical Nurse Specialist Psychiatric/Mental Health, Adult
DX: F25.9 Schizoaffective disorder, unspecified (principal); U07.1 COVID-19; R45.851 Suicidal ideations; E83.42 Hypomagnesemia; F11.20 Opioid dependence, uncomplicated; F14.10 Cocaine abuse, uncomplicated; F10.90 Alcohol use, unspecified, uncomplicated; F60.9 Personality disorder, unspecified; Z59.02 Unsheltered homelessness; Z87.820 Personal history of traumatic brain injury
CPT/HCPCS: 36415; 80053; 80061; 80143; 80179; 80307; 82607; 82746; 82947; 83036; 83735; 84439; 84443; 85025; 87635; 90656; 93005; 99285; S9485

== ENCOUNTER → 2025-05-01 14:26 | Outpatient (BNV) | payer MEDICAID, SELFPAY | PROVIDERS: Emergency Provider Emergency Medicine; Visit Provider Internal Medicine Cardiovascular Disease | DX: R94.31 Abnormal electrocardiogram [ECG] [EKG] (principal); F11.20 Opioid dependence, uncomplicated | CPT/HCPCS: 93010 ==

== ENCOUNTER → 2025-05-03 11:34 | Outpatient (BNV) | payer MEDICAID, SELFPAY | PROVIDERS: Admitting Provider Clinical Nurse Specialist Psychiatric/Mental Health, Adult; Emergency Provider Emergency Medicine; Visit Provider Nurse Practitioner Family | DX: M25.561 Pain in right knee (principal); M25.562 Pain in left knee; M25.571 Pain in right ankle and joints of right foot; M25.572 Pain in left ankle and joints of left foot | CPT/HCPCS: 99221 ==

== ENCOUNTER → 2025-05-03 11:34 | Outpatient (BNV) | payer OTHER, SELFPAY | PROVIDERS: Admitting Provider Clinical Nurse Specialist Psychiatric/Mental Health, Adult; Emergency Provider Emergency Medicine; Visit Provider Psychiatry & Neurology Psychiatry | DX: F25.9 Schizoaffective disorder, unspecified (principal); F14.90 Cocaine use, unspecified, uncomplicated; F10.90 Alcohol use, unspecified, uncomplicated; S06.9XAD Unspecified intracranial injury with loss of consciousness status unknown, subsequent encounter; Z59.00 Homelessness unspecified; F60.9 Personality disorder, unspecified | CPT/HCPCS: 99232 ==